=== PATIENT | female | born 1970 | race Caucasian/White ===

== ENCOUNTER 2016-12-22 10:06 | Emergency (ER) | payer SELFPAY ==
[~2016-12-22] VITALS: Ht 172.7 cm; Wt 64.0 kg
[~2016-12-22 10:06] MED LIST: ALBU8I INH; BACL20TA; MORP30SU PO; MS C PO; OMPR20CCR PO; PHEN12.5 PO; PRED20 PO; ROBA750T3 PO; TRAZ100 PO
[2016-12-22 10:14] VITALS: BP 137/92; PULSE 80; RESP 20; TEMP 98; O2SAT 99
[2016-12-22] MEDS ORDERED: MORP15TA73 PO (10:26)
[2016-12-22] MEDS ORDERED: BACL20TA PO (10:26)
[2016-12-22] MEDS ORDERED: ELLIPTA (10:26)
[2016-12-22] MEDS ORDERED: MS C100T PO (10:26)
[2016-12-22] MEDS ORDERED: methylPREDNISolone SOD SUCC 125 MG/2 ML VIAL IVP ONE (11:00)
[2016-12-22] MEDS ORDERED: SODIUM CHLORIDE 0.9% FLUSH 5 ML FLUSH IVF PRN (11:00)
[2016-12-22 11:06] VITALS: RESP 16; O2SAT 97
--- NOTE | 2016-12-22 11:07 | PD ---
HPI Chief Complaint: Cold / Flu Symptoms Time Seen by Provider: 10:38 Travel History International Travel<30 days: No Contact w/Intl Traveler<30days: No Traveled to known affect area: No History of Present Illness HPI Patient is a 46-year-old female who presents to emergency room with complaints of not feeling well. That she has history of COPD, reports that she is a smoker. Patient reports that for the past month, she has been having increased nonproductive cough and congestion. Reports that she has been having such a coughing fits that she ends up throwing up after she coughs. Patient with no fevers or chills. Patient reports that she has been feeling achy all over, reports that she did not receive the influenza vaccine this year. Patient denies chest pain at this time. Reports that she does feel shortness of breath with increased wheezing. Patient denies any recent travels or trips. Denies history of PE or DVT. Denies any sick contacts at home. 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) Fibromyalgia: Yes GERD: Yes Musculoskeletal: Yes (DDD, CHRONIC BACK PAIN) Psychiatric: Yes Immunizations Current: No Pancreatitis: Yes Tetanus Vaccination: < 5 Years ?: Unknown Menopausal: Yes : 8 Para: 1 Miscarriage: 7 Past Surgical History Genitourinary Surgery: Yes (NEPHRECTOMY - BORN WITH 1 KIDNEY) Tonsillectomy: Yes Other Surgery: Yes (BREAST AUGMENTATION) Social History Alcohol Use: Yes (3-6 BEERS OR MIX DRINKS THREE TIMES A WEEK.) Tobacco Use: Yes (1 PPD) Substance Use: No Allergies-Medications (Allergen,Severity, Reaction): Coded Allergies: Codeine (Verified Allergy, Severe, "MY SKIN CRAWLS", 12/22/16) Ultram (Verified Allergy, Mild, GI UPSET, 12/22/16) Reported Meds & Prescriptions Reported Meds & Active Scripts Active Reported Morphine Sulfate CR (Morphine Sulfate) 15 Mg Tab 30 Mg PO BID PRN Ms Contin (Morphine Sulfate) 100 Mg Tab 100 Mg PO Q8H [Ellipta] Baclofen 20 Mg Tab 20 Mg PO BID Review of Systems General / Constitutional: No: Fever Eyes: No: Visual changes HENT: No: Headaches Cardiovascular: No: Chest Pain or Discomfort Respiratory: Positive: Cough, Wheezing, No: Shortness of Breath, Sneezing Gastrointestinal: No: Abdominal Pain Genitourinary: No: Dysuria Musculoskeletal: No: Pain Skin: No Rash Neurologic: No: Weakness Psychiatric: No: Depression Endocrine: No: Polydipsia Hematologic/Lymphatic: No: Easy Bruising Physical Exam Narrative GENERAL:NAD, nontoxic SKIN: Warm and dry. HEAD: Atraumatic. Normocephalic. EYES: Pupils equal and round. No scleral icterus. No injection or drainage. ENT: No nasal bleeding or discharge. Mucous membranes pink and moist. NECK: Trachea midline. No JVD. CARDIOVASCULAR: Regular rate and rhythm. No murmur appreciated. RESPIRATORY: No accessory muscle use. Scattered wheezing on exam GASTROINTESTINAL: Abdomen soft, non-tender, nondistended. Hepatic and splenic margins not palpable. MUSCULOSKELETAL: No obvious deformities. No clubbing. No cyanosis. No edema. NEUROLOGICAL: Awake and alert. No obvious cranial nerve deficits. Motor grossly within normal limits. Normal speech. PSYCHIATRIC: Appropriate mood and affect; insight and judgment normal. Data Data Last Documented VS Vital Signs Date Time Temp Pulse Resp B/P Pulse Ox O2 Delivery O2 Flow Rate FiO2 12/22/16 13:29 72 16 98 12/22/16 11:13 98.0 137/92 12/22/16 11:12 Room Air Orders Complete Blood Count With Diff (12/22/16 10:55) Comprehensive Metabolic Panel (12/22/16 10:55) Influenzae A/B Antigen (12/22/16 10:55) Iv Access Insert/Monitor (12/22/16 10:55) Oximetry (12/22/16 10:55) Chest, Single Ap (12/22/16 10:55) Sodium Chloride 0.9% Flush (Ns Flush) (12/22/16 11:00) Methylprednisolone So Succ Inj (Solumedr (12/22/16 11:00) Albuterol-Ipratropium Neb (Duoneb Neb) (12/22/16 11:00) Ed Urine Pregnancytest Poc (12/22/16 10:55) Labs Laboratory Tests Test 12/22/16 11:00 White Blood Count 4.2 TH/MM3 Red Blood Count 3.83 MIL/MM3 Hemoglobin 11.6 GM/DL Hematocrit 35.9 % Mean Corpuscular Volume 93.6 FL Mean Corpuscular Hemoglobin 30.4 PG Mean Corpuscular Hemoglobin 32.5 % Concent Red Cell Distribution Width 14.3 % Platelet Count 485 TH/MM3 Mean Platelet Volume 7.0 FL Neutrophils (%) (Auto) 56.5 % Lymphocytes (%) (Auto) 29.9 % Monocytes (%) (Auto) 9.7 % Eosinophils (%) (Auto) 1.2 % Basophils (%) (Auto) 2.7 % Neutrophils # (Auto) 2.3 TH/MM3 Lymphocytes # (Auto) 1.3 TH/MM3 Monocytes # (Auto) 0.4 TH/MM3 Eosinophils # (Auto) 0.1 TH/MM3 Basophils # (Auto) 0.1 TH/MM3 CBC Comment DIFF FINAL Differential Comment Sodium Level 143 MEQ/L Potassium Level 3.5 MEQ/L Chloride Level 108 MEQ/L Carbon Dioxide Level 28.4 MEQ/L Anion Gap 7 MEQ/L Blood Urea Nitrogen 6 MG/DL Creatinine 0.69 MG/DL Estimat Glomerular Filtration 91 ML/MIN Rate Random Glucose 91 MG/DL Calcium Level 7.7 MG/DL Total Bilirubin 0.3 MG/DL Aspartate Amino Transf 93 U/L (AST/SGOT) Alanine Aminotransferase 42 U/L (ALT/SGPT) Alkaline Phosphatase 91 U/L Total Protein 6.4 GM/DL Albumin 3.2 GM/DL [facility] Medical Decision Making Medical Screen Exam Complete: Yes Emergency Medical Condition: Yes Interpretation(s) Vital Signs Date Time Temp Pulse Resp B/P Pulse Ox O2 Delivery O2 Flow Rate FiO2 12/22/16 11:13 98.0 80 20 137/92 99 12/22/16 11:12 78 16 140/99 98 Room Air 12/22/16 11:06 16 97 Room Air 12/22/16 10:20 20 99 Room Air 12/22/16 10:14 98.0 80 20 137/92 99 Differential Diagnosis Influenza, pneumonia, COPD exacerbation Narrative Course Patient is a 46-year-old female who presents to emergency room with complaints of cough and congestion with increased shortness of breath over the past month. Patient with no fevers or chills, reports that she is having myalgias. Patient is a smoker, reports history of COPD. Reports that she has been using her inhaler without any relief of symptoms. Patient does have scattered wheezing on exam, plan to obtain x-ray chest, lab work. We'll treat patient with IV steroids as well as neb treatments Patient reevaluated, patient feeling much better at this time. Reviewed all labs and all studies with patient. Patient will follow-up with primary care doctor return to ER as needed. Discussed with patient need to stop smoking. CBC & BMP Diagram 12/22/16 11:00 Last Impressions Chest X-Ray 12/22/16 1055 Signed Impressions: Service Date/Time: December 11:00 - CONCLUSION: No acute disease. Jacob Young MD Microbiology Date/Time Procedure Status Source Growth 12/22/16 11:00 Influenza Types A,B Antigen (ASPEN) - Final Complete Nasal Aspirate NEGATIVE FOR FLU A AND B ANTIGEN.... Diagnosis Primary Impression: COPD exacerbation Patient Instructions: General Instructions Additional Instructions: Please follow-up with your primary care doctor in 1-2 days Return to the emergency room as needed Med/Other Pt SpecificInfo: Prescription(s) given Scripts Albuterol 8.5 GM Inh (Proair Hfa 8.5 GM Inh)90 Mcg/Act Aer2 Puff INH Q4-6H PRN ( SHORTNESS OF BREATH) #1 INHALER Ref 0 108 mcg/actuation Prov:Adela Lowe DO 12/22/16 Prednisone 20 Mg Tab20 Mg PO BID 5 Days Ref 0 Prov:Adela Lowe DO 12/22/16 Disposition: 01 DISCHARGE HOME Condition: Stable Adela Lowe DO Dec 22, 2016 11:07
[2016-12-22] MEDS: RESP: ALBUTEROL 2.5 MG/IPRATROPIUM 0.5 MG NEB (SCH) INH ×2 (11:09→11:10)
[2016-12-22 11:10] LABS: AUTOMATED NEUTROPHIL # 2.3 TH/MM3 (1.8-7.7); BASOPHIL # 0.1 TH/MM3 (0-0.2); BASOPHIL % 2.7 % (0.0-2.0); EOSINOPHIL # 0.1 TH/MM3 (0-0.4); EOSINOPHIL % 1.2 % (0.0-4.0); HEMATOCRIT 35.9 % (35.0-46.0); HEMO FLAGS DIFF FINAL; LYMPH % 29.9 % (9.0-44.0); LYMPHOCYTE # 1.3 TH/MM3 (1.0-4.8); MEAN CELL VOLUME 93.6 FL (80.0-100.0); MEAN CORPUSCULAR HEMOGLOBIN 30.4 PG (27.0-34.0); MEAN CORPUSCULAR HGB CONC 32.5 % (32.0-36.0); MONO % 9.7 % (0.0-8.0); NEUT % 56.5 % (16.0-70.0); PLATELET COUNT 485 TH/MM3 (150-450); RED BLOOD COUNT 3.83 MIL/MM3 (4.00-5.30); RED CELL DISTRIBUTION WIDTH 14.3 % (11.6-17.2); WHITE BLOOD COUNT 4.2 TH/MM3 (4.0-11.0)
[2016-12-22 11:12] VITALS: BP 140/99; PULSE 78; RESP 16; O2SAT 98
[2016-12-22 11:13] VITALS: BP 137/92; PULSE 80; RESP 20; TEMP 98; O2SAT 99
[2016-12-22 11:29] LABS: CHLORIDE 108 MEQ/L (98-107); POTASSIUM 3.5 MEQ/L (3.5-5.1); SODIUM (NA) 143 MEQ/L (136-145)
[2016-12-22 11:33] LABS: ANION GAP 7 MEQ/L (5-15); BICARBONATE 28.4 MEQ/L (21.0-32.0); BLOOD UREA NITROGEN 6 MG/DL (7-18)
[2016-12-22 11:36] LABS: ALT (GPT) 42 U/L (10-53); AST (GOT) 93 U/L (15-37); GLOMERULAR FILTRATION RATE 91 ML/MIN (>89)
[2016-12-22 11:37] LABS: TOTAL BILIRUBIN ADULT 0.3 MG/DL (0.2-1.0)
[2016-12-22 11:39] LABS: ALKALINE PHOSPHATASE 91 U/L (45-117)
--- NOTE | 2016-12-22 11:41 | RADHPO ---
EXAM DATE/TIME: 12/22/2016 11:00 [facility] COMPARISON: CHEST SINGLE AP, December 24, 2013, 22:12. INDICATIONS : Short of breath, coughing, fever off and on for 4 days, COPD, smoker MEDICAL HISTORY : Chronic obstructive pulmonary disease. SURGICAL HISTORY : bilateral breast implants ENCOUNTER: Initial ACUITY: 4 - 6 days PAIN SCORE: 0/10 LOCATION: Bilateral chest FINDINGS: A single view of the chest demonstrates the lungs to be symmetrically aerated without evidence of mas s, infiltrate or effusion. The cardiomediastinal contours are unremarkable. Osseous structures are intact. Bilateral calcified breast implants are again noted. CONCLUSION: No acute disease. Jacob Young MD on December 22, 2016 at 11:39 Board Certified Radiologist. This report was verified electronically.
[2016-12-22] MEDS ORDERED: PRED20 PO (13:32)
[2016-12-22] MEDS ORDERED: ALBUAER3 INH (13:32)
[2017-04-12] MEDS ORDERED: MORP1INJ25 PO (14:40)
[2017-04-12] MEDS ORDERED: ACYC1CAP16 PO ×2 (14:40→15:53)
[2017-04-12] MEDS ORDERED: MONT10TA4 PO ×2 (14:40→15:53)
[2017-04-12] MEDS ORDERED: ONDA1TAB16 PO (14:40)
[2017-04-12] MEDS ORDERED: ALBUAER3 INH (15:53)
[2017-04-12] MEDS ORDERED: PANT20 PO (15:53)
== END 2016-12-22 13:53 | disposition home or self-care (01) ==
LOC: PHED 10:06
DX: J44.1 Chronic obstructive pulmonary disease with (acute) exacerbation (principal); M06.9 Rheumatoid arthritis, unspecified; F41.8 Other specified anxiety disorders; R00.2 Palpitations; H91.93 Unspecified hearing loss, bilateral; F17.210 Nicotine dependence, cigarettes, uncomplicated
CPT/HCPCS: 71010; 80053; 84703; 85025; 87804; 94640; 94664; 96374; 99283; J2930

== ENCOUNTER → 2017-04-26 | Outpatient (CLI) | payer OTHER ==
[~2017-04-26] MED LIST changes: +ACYC1CAP16 PO; -ALBU8I INH; +ALBUAER3 INH; -BACL20TA; +BACL20TA PO; +MONT10TA4 PO; +MORP1INJ25 PO; -MORP30SU PO; -MS C PO; -OMPR20CCR PO; +ONDA1TAB16 PO; +PANT20 PO; -PHEN12.5 PO; -PRED20 PO; -ROBA750T3 PO; -TRAZ100 PO
[2017-04-26 11:26] LABS: ALT (GPT) 21 U/L (10-53); ANION GAP 4 MEQ/L (5-15); AST (GOT) 45 U/L (15-37); BICARBONATE 30.2 MEQ/L (21.0-32.0); BLOOD UREA NITROGEN 10 MG/DL (7-18); CHLORIDE 106 MEQ/L (98-107); GLOMERULAR FILTRATION RATE 87 ML/MIN (>89); GLUCOSE,FASTING 81 MG/DL (74-99); SODIUM (NA) 140 MEQ/L (136-145)
[2017-04-26 11:27] LABS: ALKALINE PHOSPHATASE 69 U/L (45-117); TOTAL BILIRUBIN ADULT 0.6 MG/DL (0.2-1.0)
== END ==
LOC: CLAB 10:45
PROVIDERS: ATTEND Nurse Practitioner Family
DX: R10.13 Epigastric pain (principal)
CPT/HCPCS: 36415; 80053

== ENCOUNTER → 2017-04-26 | Outpatient (CLI) | payer OTHER ==
--- NOTE | 2017-04-26 14:06 | RADRPT ---
EXAM DATE/TIME: 04/26/2017 10:22 [facility] COMPARISON: CT ABDOMEN & PELVIS W CONTRAST, November 23, 2012, 13:42. INDICATIONS : Abdomen pain. MEDICAL HISTORY : Chronic obstructive pulmonary disease. Gastroesophageal reflux disease. Rheumatoid arthritis. Pancrea titis. Sleep apnea. Uterine fibroids. Fibromyalgia. Anemia. SURGICAL HISTORY : Tonsillectomy. Breast implants. ENCOUNTER: Initial ACUITY: > 1 year PAIN SCORE: 4/10 LOCATION: Abdomen. MEASUREMENTS: LIVER: 16.5 cm length COMMON DUCT: 6 mm RIGHT KIDNEY: Not visualized. LEFT KIDNEY: 12.9 x 7.0 x 7.7 cm SPLEEN: 8.6 cm length AORTA: 2.5cm maximal FINDINGS: LIVER: Normal echotexture without focal lesion or ductal dilatation. COMMON DUCT: No intraluminal mass or stone visualized. GALLBLADDER: Contains no stones, demonstrates no wall thickening or pericholecystic fluid. PANCREAS: The visualized portions are within normal limits. 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 LEFT KIDNEY: Compensatory enlargement of the left kidney. No hydronephrosis, stone or mass. SPLEEN: No focal lesion. AORTA: Non aneurysmal. IVC: Within normal limits. CONCLUSION: 1. Redemonstration of absent right kidney consistent with prior CT and patient's history of right louie al agenesis. 2. Otherwise, unremarkable abdominal ultrasound examination. Specifically, no sonographic evidence fo r cholelithiasis or acute cholecystitis. Alfredo Lopez MD on April 26, 2017 at 14:00 Board Certified Radiologist. This report was verified electronically.
== END ==
LOC: HRAD 09:23
PROVIDERS: ATTEND Family Medicine
DX: R10.13 Epigastric pain (principal)
CPT/HCPCS: 76700

== ENCOUNTER → 2017-06-09 | Outpatient (CLI) | payer OTHER | LOC: CLAB 13:20 | PROVIDERS: ATTEND Nurse Practitioner Family | DX: R63.4 Abnormal weight loss (principal); R10.13 Epigastric pain | CPT/HCPCS: 36415; 82272; 84443 ==